=== PATIENT | male | born 1955 | race Caucasian/White ===

== ENCOUNTER 2020-01-13 00:04 | Outpatient (CLI) | payer OTHER, SELFPAY ==
[2020-01-13 19:22] LABS: SARS-CoV-2 RNA PCR Negative
== END 2020-01-13 00:05 | disposition home or self-care (01) ==
LOC: ANHCOVIDDT 00:04
PROVIDERS: PCP Nurse Practitioner Adult Health; Visit Provider Internal Medicine Gastroenterology
DX: Z01.818 Encounter for other preprocedural examination (principal); Z11.59 Encounter for screening for other viral diseases
CPT/HCPCS: 87635; C9803; U0003

== ENCOUNTER 2020-01-16 02:31 | Day surgery (SDC) | payer OTHER, SELFPAY ==
[2020-01-06 11:58] VITALS: BMI 38.5
[2020-01-16 06:49] VITALS: BP 146/60; PULSE 62; RESP 16; TEMP 36.6; O2SAT 96; BMI 38.3
--- NOTE | 2020-01-16 07:06 | WPDANESEPPF ---
Anes - Initial Pre Proc Eval Procedure: Operation Date: 01/16/20 08:00 Proposed Procedures p Colonoscopy - Dominguez Morales MD Date/Time: 01/16/20 07:06 Surgeon: Dominguez Morales MD Pre Op Diagnosis: Blood In Stool Patient Data Age: 65 Gender: M Height: 5 ft 10 in Weight: 121.2 kg Last Vital Signs Temp 36.6 C 01/16/20 06:49 Pulse 62 01/16/20 06:49 Resp 16 01/16/20 06:49 BP 146/60 H 01/16/20 06:49 Pulse Ox 96 01/16/20 06:49 Allergies Allergy/AdvReac Type Severity Reaction Status Date / Time nitrous oxide Allergy Severe Unknown Verified 01/16/20 06:48 amoxicillin Allergy Mild Rash Verified 01/16/20 06:48 Home Medications Medication Instructions Recorded Confirmed Type [id number]-[id number]-hwza-st 1 cap PO DAILY 01/06/20 01/06/20 History ibuprofen 600 mg PO BID PRN 01/06/20 01/06/20 History mi-la-UE-vit Q-irpfr-zda-coQ10 1 cap PO DAILY 01/06/20 01/06/20 History [Daily Multivitamin] Patient hx anesthesia problems: other (syncope after N2O at dentist office) Family hx anesthesia problems: none PMFSH Past Medical History Medical History Arthritis DDD (degenerative disc disease) History of angina History of skin cancer CARLOS (obstructive sleep apnea) Spinal stenosis Surgical History Surgical History History of left knee surgery History of local excision of skin lesion History of tonsillectomy History of vasectomy Hx of cardiac cath Social History Social History Gender identity (if verbalized by the patient): Male Sexual Orientation (if Verbalized by the Patient): Straight or Heterosexual Anes - Eval Final PreProcedure Day of Procedure 01/16/20 07:06 Patient weight: obese Heart: regular rate and rhythm Lungs: clear to auscultation Airway: Mallampati scale class II Neurological: alert and oriented Last oral intake: >/= 8 hours ASA classification: III Emergent: no Anesthetic plan: proceed Anesthesia type and monitoring: general GIVS and standard monitoring Informed Consent: The patient's anesthetic plan and its attendant risks and benefits were discussed with the patient/family/POA. Questions were solicited and answers provided to the satisfaction of the patient/family/POA.
--- NOTE | 2020-01-16 07:08 | PM.HPGS ---
History of Present Illness History of Present Illness Consent: Risks, benefits, and alternatives have been discussed and questions answered. Patient agrees to proceed with procedure. Chief complaint: Blood In Stool Narrative: John Londono is a 65 year old W male referred for colonoscopy secondary to history of rectal bleeding. Patient states approximately 4 weeks ago several days of bright red blood per rectum. He had no change in his bowel pattern associated with this such as diarrhea or constipation. No abdominal pain. Patient had been taking Aleve for chronic back pain stop this. He has had no black stools. No nausea vomiting no upper GI tract symptoms. Patient had a colonoscopy 10 years ago which was normal. There is no family history of colon polyps or colon cancer. [facility] Past Medical History Medical History Arthritis DDD (degenerative disc disease) History of angina History of skin cancer Spinal stenosis Surgical History Surgical History History of left knee surgery History of local excision of skin lesion History of tonsillectomy History of vasectomy Hx of cardiac cath Social History Social History Gender identity (if verbalized by the patient): Male Sexual Orientation (if Verbalized by the Patient): Straight or Heterosexual Meds Home Medications and Allergies Home Medications Medication Instructions Recorded Confirmed Type [id number]-isb-nxn-efzy-st 1 cap PO DAILY 01/06/20 01/06/20 History ibuprofen 600 mg PO BID PRN 01/06/20 01/06/20 History wg-fa-IF-vit M-nytug-xen-coQ10 1 cap PO DAILY 01/06/20 01/06/20 History [Daily Multivitamin] Allergies Allergy/AdvReac Type Severity Reaction Status Date / Time nitrous oxide Allergy Severe Unknown Verified 01/16/20 06:48 amoxicillin Allergy Mild Rash Verified 01/16/20 06:48 Vital Signs Vital Signs - 24 hr 01/16/20 06:49 Temperature 36.6 C Pulse Rate 62 Respiratory Rate 16 Blood Pressure 146/60 H Pulse Oximetry 96 Exam Const: Orientation/consciousness: patient oriented x3 Resp: Auscultation: clear to auscultation bilaterally Cardio: Rate: regular rate Rhythm: regular rhythm Heart sounds: no murmurs GI: GI Palp: Yes Soft to palpation, No Tenderness to palpation present (GI), Yes No hepatosplenomegaly present and No Palpable mass present Auscultation: normal bowel sounds Neuro: General: patient oriented x3 and no focal motor deficits Extrem: General: no pedal edema Assessment and Plan Additional Plan Colonoscopy for evaluation of rectal bleeding
[2020-01-16] MEDS: LACTATED RINGERS 1,000 ML 150 ML IV CONT (07:09)
[2020-01-16 08:12] VITALS: BP 121/67; PULSE 65; RESP 18; O2SAT 96
[2020-01-16 08:22] VITALS: BP 120/66; PULSE 52; RESP 16; O2SAT 94
[2020-01-16 08:32] VITALS: BP 124/73; PULSE 54; RESP 12; O2SAT 98
== END 2020-01-16 08:48 | disposition home or self-care (01) ==
PROVIDERS: PCP Nurse Practitioner Adult Health; Visit Provider Internal Medicine Gastroenterology
PROC: 0DJD8ZZ Inspection of Lower Intestinal Tract, Via Natural or Artificial Opening Endoscopic (ICD-10-PCS; CPT 45378; principal; 2020-01-16 08:00)
DX: K62.5 Hemorrhage of anus and rectum (principal); K64.1 Second degree hemorrhoids; K64.4 Residual hemorrhoidal skin tags; G47.33 Obstructive sleep apnea (adult) (pediatric); E66.9 Obesity, unspecified; Z68.38 Body mass index [BMI] 38.0-38.9, adult
CPT/HCPCS: 45378; J2704; J7120